=== PATIENT | female | born 1960 | race Caucasian/White ===

== ENCOUNTER 2016-07-02 10:20 | Day surgery (SDC) | payer OTHER ==
--- NOTE | 2016-07-02 07:39 | HP ---
DATE OF SURGERY: 07/02/2016 HISTORY OF PRESENT ILLNESS: The patient is a 56 year-old who for a while had a nodular cyst on the right arm that has been increasing in size, increasing discomfort and desires excision. PAST MEDICAL HISTORY: Asthma. PAST SURGICAL HISTORY: She denies prior surgery in this area. D&C and tubal in the past. MEDICATIONS: Denies any medications. She denied any medications but she is taking Tylenol, Ventolin HFA, Fenugreek seed extract and Benadryl PRN. ALLERGIES: IV CONTRAST. FAMILY HISTORY: Diabetes, myocardial infarction, prostate cancer, breast cancer. SOCIAL HISTORY: Less than one pack per day smoker. One to drinks one to two times a week. REVIEW OF SYSTEMS: Twelve systems reviewed per admission assessment. No chest pain or palpitations other systems negative or noncontributory as above and per preadmission questionnaire. PHYSICAL EXAMINATION: GENERAL: No acute distress. HEENT: Sclerae nonicteric. NECK: No JVD. CHEST: Equal excursion, nonlabored breathing. CVS: Regular rate and rhythm. ABDOMEN: Soft, nontender. EXTREMITIES: Right forearm nodular cyst. Otherwise no cyanosis. NEURO: Alert, moving extremities grossly symmetrically. IMPRESSION: Enlarging increasingly symptomatic right forearm nodular cyst. I felt the patient would benefit from excisional biopsy. Risks and benefits explained in detail including but not limited to bleeding or infection, risk of wound complication or dehiscence possibly requiring packing, general risk of aches, pains, burning or numbness possibly alf or chronic in nature, risk of sensory or motor nerve irritation or scar formation but not limited to. She understands and agrees to the planned procedure and will proceed with excisional biopsy right forearm nodular cystic as an outpatient.
[~2016-07-02 10:20] MED LIST: DIPRIVAN 200 MG/20 ML IV ONE; Decadron 4 MG INJ IV ONE; Lactated Ringers 1,000 ML IV ONE; Lactated Ringers 1,000 ML IV SCH; SUBLIMAZE 100 MCG/2 ML IV ONE; Sensorcaine 0.25% 10 ML ONE; TORAdol 30 mg Injection IV ONE; Zofran 4 MG/2 ML VIAL IV ONE
[2016-07-02 13:10] VITALS: BP 122/69; PULSE 75; O2SAT 98
--- NOTE | 2016-07-03 08:35 | OP ---
SURGERY DATE/TIME: 07/02/2016 1111 PREOPERATIVE DIAGNOSIS: Enlarging symptomatic right forearm cyst or nodule. POSTOPERATIVE DIAGNOSIS: Enlarging symptomatic right forearm cyst or nodule. PROCEDURE: Excisional biopsy approximately 1.5 to 2 cm cyst or nodule with intermediate closure. SURGEON: Dr. Jose Luis Mari. HOLISTIC PULSER: Nereida Han, Medical Student III. ANESTHESIA: General. ESTIMATED BLOOD LOSS: Minimal. INDICATIONS: As noted above. Risks and benefits explained in detail and not limited to and consent obtained. DESCRIPTION OF PROCEDURE AND FINDINGS: The patient is taken to the operating room. The area had been confirmed, marked in the preoperative holding area. Taken to the operating room. General anesthesia induced. The arm was prepped and draped in usual sterile fashion. After official time out and no disagreement with planned procedure, a small spindle shaped segment of skin overlying the area was taken. Dissection carried down through the skin. It seemed to be inflamed anteriorly but slowly and carefully it was mobilized around. It had a little bit more appearance of a cyst type nodule slowly and carefully freed from the underlying fascia and surrounding subcutaneous fat. It was passed off. It measured about 1.5 cm or so but less than 2 cm in vivo. Good hemostasis noted. Subcu closed with 3-0 Vicryl, skin closed with 4-0 Vicryl, Steri-Strips and sterile dressing applied. The patient tolerated the procedure well. There were no immediate complications. Findings discussed with the family out in the waiting area.
== END 2016-07-02 13:05 | disposition home or self-care (01) ==
LOC: SDC 10:20
PROVIDERS: ATTEND Surgery
PROC: 0HQDXZZ Repair Right Lower Arm Skin, External Approach (ICD-10-PCS; principal; 2016-07-02)
PROC: 0HBDXZX Excision of Right Lower Arm Skin, External Approach, Diagnostic (ICD-10-PCS; 2016-07-02)
DX: L72.9 Follicular cyst of the skin and subcutaneous tissue, unspecified (principal); R20.8 Other disturbances of skin sensation; J45.909 Unspecified asthma, uncomplicated; Z72.0 Tobacco use
CPT/HCPCS: 00400; 36415; J1100; J1885; J2405; J2704; J3010

== ENCOUNTER 2017-08-19 16:12 | Observation (INO) | payer OTHER ==
[2017-08-19] MEDS ORDERED: Sodium Chloride 0.9% 1000 ML 1,000 ML IV STA (16:21)
--- NOTE | 2017-08-19 16:26 | ERPHSYRPT ---
- History of Present Illness Time Seen by Provider: 08/19/17 16:23 Source: patient Physician History: mild to mod dizziness and muscle cramps diffusely after working in the hot sun today, no emesis, no injury, speech fluent Allergies/Adverse Reactions: Iodinated Contrast- Oral and IV Dye [Iodinated Contrast Media - Oral and] Allergy (Severe, Verified 08/19/17 16:29) Hives Home Medications: Diphenhydramine HCl 25 mg [Benadryl 25 mg Capsule] 75 mg PO DAILY [History] Lisinopril/Hydrochlorothiazide [Lisinopril-Hctz 10-12.5 mg Tab] 1 tab PO DAILY 08/19/17 [History] - Review of Systems Constitutional: Weakness, No Fever Eyes: No Vision Changes Ears, Nose, & Throat: No Mouth Pain Respiratory: No Dyspnea Cardiac: No Chest Pain Abdominal/Gastrointestinal: No Abdominal Pain Musculoskeletal: No Injury Skin: No Rash Neurological: Dizziness, Headache, No Focal Weakness - Past Medical History Pertinent Past Medical History: Yes Neurological History: No Pertinent History ENT History: No Pertinent History Cardiac History: Hypertension Respiratory History: Asthma Endocrine Medical History: No Pertinent History Musculoskeletal History: No Pertinent History GI Medical History: No Pertinent History History: No Pertinent History Psycho-Social History: Anxiety Female Reproductive Disorders: No Pertinent History Other Medical History: pt states she lost her son in 2000, she had anxiety, and chest pain, and hypertension. she saw Dr. Jenkins and her heart was ruled out, she was having anxiety from the loss of her son. - Past Surgical History Past Surgical History: Yes Neuro Surgical History: No Pertinent History Cardiac: No Pertinent History Respiratory: No Pertinent History Gastrointestinal: No Pertinent History Genitourinary: No Pertinent History Musculoskeletal: No Pertinent History Female Surgical History: Tubal Ligation - Social History Smoking Status: Former smoker Exposure to second hand smoke: No Drug Use: none - Nursing Vital Signs Nursing Vital Signs: Initial Vital Signs Temperature 98.0 F 08/19/17 16:19 Pulse Rate 108 H 08/19/17 16:19 Blood Pressure 92/59 08/19/17 16:19 O2 Sat by Pulse Oximetry 93 L 08/19/17 16:19 Pain Scale Pain Intensity 0 - Physical Exam General Appearance: no apparent distress Eye Exam: PERRL/EOMI Ears, Nose, Throat Exam: dry mucous membranes Neck Exam: No meningismus Respiratory Exam: lungs clear, No respiratory distress Cardiovascular Exam: regular rate/rhythm Gastrointestinal/Abdomen Exam: soft, No tenderness Back Exam: normal range of motion Extremity Exam: normal range of motion Neurologic Exam: alert, oriented x 3, cooperative Skin Exam: warm, dry - Course Nursing assessment & vital signs reviewed: Yes EKG Interpreted by Me: Other (nsr 95, no stemi) - CT Exams Head CT Interpretation: Negative, Discussed w/radiologist Ordered Tests: Active Orders 24 hr Category Date Time Status EKG-ER Only STAT Care 08/19/17 16:21 Active IV Insertion STAT Care 08/19/17 16:21 Active HEAD WITHOUT CONTRAST [CT] Stat Exams 08/19/17 16:22 Completed CBC W DIFF Stat Lab 08/19/17 16:40 Completed CK-Creatinine Phosphokinase Stat Lab 08/19/17 16:40 Results CMP Stat Lab 08/19/17 16:40 Results CULTURE,URINE Stat Lab 08/19/17 Received ETHYL ALCOHOL Stat Lab 08/19/17 16:40 Results Lactic Acid Stat Lab 08/19/17 16:21 Completed TROPONIN Q3H Lab 08/19/17 16:40 Completed TROPONIN Q3H Lab 08/19/17 19:30 Ordered TROPONIN Q3H Lab 08/19/17 22:30 Ordered TROPONIN Q3H Lab 08/20/17 01:30 Ordered TROPONIN Q3H Lab 08/20/17 04:30 Ordered UA W/ MICROSCOPIC Stat Lab 08/19/17 Completed Urine Triage Profile Stat Lab 08/19/17 16:22 Completed Transfer Order Routine Transfer 08/19/17 Ordered Medication Summary Discontinued Medications Generic Name Dose Route Start Last Admin Trade Name Will PRN Reason Stop Dose Admin Sodium Chloride 1,000 mls @ 999 mls/hr 08/19/17 16:21 08/19/17 16:40 Sodium Chloride 0.9% 1000 Ml IV 08/19/17 17:21 999 mls/hr .Q1H1M STA Administration Sodium Chloride Confirm 08/19/17 16:38 Sodium Chloride 0.9% 1000 Ml Administered 08/19/17 16:39 Dose 1,000 mls @ ud .ROUTE .STK-MED ONE Lab/Rad Data: Laboratory Result Diagrams 08/19/17 16:40 08/19/17 16:40 Laboratory Results 08/19/17 08/19/17 08/19/17 Range/Units Unknown 16:40 16:40 WBC (4.0-10.5) K/mm3 RBC (4.1-5.4) M/mm3 Hgb (12.0-16.0) gm/dl Hct (35-47) % MCV (78-100) fl MCH (26-32) pg MCHC (32-36) g/dl RDW (11.5-14.0) % Plt Count (150-450) K/mm3 MPV (6-9.5) fl Gran % (36.0-66.0) % Eos # (Auto) (0-0.5) Absolute Lymphs (auto) (1.0-4.6) Absolute Monos (auto) (0.0-1.3) Lymphocytes % (24.0-44.0) % Monocytes % (0.0-12.0) % Eosinophils % (0.00-5.0) % Basophils % (0.0-0.4) % Absolute Granulocytes (1.4-6.9) Basophils # (0-0.4) Sodium 140 (137-145) mmol/L Potassium 4.0 (3.5-5.1) mmol/L Chloride 102 (98-107) mmol/L Carbon Dioxide 27 (22-30) mmol/L Anion Gap 15.6 H (5-15) MEQ/L BUN 31 H (7-17) mg/dL Creatinine 1.68 H (0.52-1.04) mg/dL Estimated GFR 33.5 ML/MIN Glucose 100 (74-106) mg/dL Lactic Acid (0.4-2.0) Calcium 10.5 H (8.4-10.2) mg/dL Total Bilirubin 0.70 (0.2-1.3) mg/dL AST 31 (14-36) U/L ALT 20 (0-35) U/L Alkaline Phosphatase 71 (38-126) U/L Creatine Kinase 82 (30-135) U/L Troponin I 0.015 (0.000-0.034) ng/mL Serum Total Protein 7.6 (6.3-8.2) g/dL Albumin 4.6 (3.5-5.0) g/dL Ur Collection Type CCMS Urine Color DARK YELLOW (YELLOW) Urine Appearance CLEAR (CLEAR) Urine pH 5.0 (5-6) Ur Specific [place] 1.020 (1.005-1.025) Urine Protein TRACE (Negative) Urine Ketones TRACE (NEGATIVE) Urine Blood TRACE NON-HEM (0-5) Ashu/ul Urine Nitrite NEGATIVE (NEGATIVE) Urine Bilirubin NEGATIVE (NEGATIVE) Urine Urobilinogen NORMAL (0-1) mg/dL Ur Leukocyte Esterase TRACE (NEGATIVE) Urine Microscopic RBC 0-2 (0-2) /HPF Urine Microscopic WBC 5-10 (0-5) /HPF Ur Epithelial Cells FEW (FEW) /HPF Urine Bacteria RARE (NEGATIVE) /HPF Urine Mucus SLIGHT (NEGATIVE) /HPF Urine Culture Reflexed YES (NO) Urine Glucose NEGATIVE (NEGATIVE) mg/dL Urine Opiates Level (NEGATIVE) Ur Methadone (NEGATIVE) Urine Barbiturates (NEGATIVE) Ur Phencyclidine (PCP) (NEGATIVE) Urine Amphetamine (NEGATIVE) U Benzodiazepine Level (NEGATIVE) Urine Cocaine (NEGATIVE) Urine Marijuana (THC) (NEGATIVE) Ethyl Alcohol Pending Specimen Received 08-19-17 1815 08/19/17 08/19/17 08/19/17 Range/Units 16:40 16:22 16:21 WBC 16.5 H (4.0-10.5) K/mm3 RBC 4.82 (4.1-5.4) M/mm3 Hgb 15.5 (12.0-16.0) gm/dl Hct 45.4 (35-47) % MCV 94.2 (78-100) fl MCH 32.2 H (26-32) pg MCHC 34.1 (32-36) g/dl RDW 13.2 (11.5-14.0) % Plt Count 384 (150-450) K/mm3 MPV 9.2 (6-9.5) fl Gran % 79.8 H (36.0-66.0) % Eos # (Auto) 0.07 (0-0.5) Absolute Lymphs (auto) 1.93 (1.0-4.6) Absolute Monos (auto) 1.30 (0.0-1.3) Lymphocytes % 11.7 L (24.0-44.0) % Monocytes % 7.9 (0.0-12.0) % Eosinophils % 0.4 (0.00-5.0) % Basophils % 0.2 (0.0-0.4) % Absolute Granulocytes 13.14 H (1.4-6.9) Basophils # 0.03 (0-0.4) Sodium (137-145) mmol/L Potassium (3.5-5.1) mmol/L Chloride (98-107) mmol/L Carbon Dioxide (22-30) mmol/L Anion Gap (5-15) MEQ/L BUN (7-17) mg/dL Creatinine (0.52-1.04) mg/dL Estimated GFR ML/MIN Glucose (74-106) mg/dL Lactic Acid 1.1 (0.4-2.0) Calcium (8.4-10.2) mg/dL Total Bilirubin (0.2-1.3) mg/dL AST (14-36) U/L ALT (0-35) U/L Alkaline Phosphatase (38-126) U/L Creatine Kinase (30-135) U/L Troponin I (0.000-0.034) ng/mL Serum Total Protein (6.3-8.2) g/dL Albumin (3.5-5.0) g/dL Ur Collection Type Urine Color (YELLOW) Urine Appearance (CLEAR) Urine pH (5-6) Ur Specific [place] (1.005-1.025) Urine Protein (Negative) Urine Ketones (NEGATIVE) Urine Blood (0-5) Ashu/ul Urine Nitrite (NEGATIVE) Urine Bilirubin (NEGATIVE) Urine Urobilinogen (0-1) mg/dL Ur Leukocyte Esterase (NEGATIVE) Urine Microscopic RBC (0-2) /HPF Urine Microscopic WBC (0-5) /HPF Ur Epithelial Cells (FEW) /HPF Urine Bacteria (NEGATIVE) /HPF Urine Mucus (NEGATIVE) /HPF Urine Culture Reflexed (NO) Urine Glucose (NEGATIVE) mg/dL Urine Opiates Level NEGATIVE (NEGATIVE) Ur Methadone NEGATIVE (NEGATIVE) Urine Barbiturates NEGATIVE (NEGATIVE) Ur Phencyclidine (PCP) NEGATIVE (NEGATIVE) Urine Amphetamine NEGATIVE (NEGATIVE) U Benzodiazepine Level NEGATIVE (NEGATIVE) Urine Cocaine NEGATIVE (NEGATIVE) Urine Marijuana (THC) POSITIVE (NEGATIVE) Ethyl Alcohol Specimen Received - Progress Progress: improved Discussed with : Nikos Will see patient in: hospital (observation) Counseled pt/family regarding: lab results, diagnosis, rad results - Departure Time of Disposition: 18:40 Departure Disposition: Observation Clinical Impression: Heat stress syndrome Qualifiers: Encounter type: initial encounter Qualified Code(s): T67.8XXA - Other effects of heat and light, initial encounter Condition: Stable Critical Care Time: No Referrals: OSMANY BONNER [Primary Care Provider] -
[2017-08-19] MEDS ORDERED: Sodium Chloride 0.9% 1000 ML 1,000 ML ONE (16:38)
[2017-08-19 16:46] LABS: BASOPHIL % 0.2 % (0.0-0.4); Basophil (Absolute #) 0.03 (0-0.4); Eosinophil % 0.4 % (0.00-5.0); Eosinophil (Absolute #) 0.07 (0-0.5); Granulocyte Absolute (ANC) 13.14 (1.4-6.9); Granulocytes % 79.8 % (36.0-66.0); Hematocrit 45.4 % (35-47); Hemoglobin 15.5 gm/dl (12.0-16.0); Lymphocyte (Absolute #) 1.93 (1.0-4.6); Lymphocytes % 11.7 % (24.0-44.0); Mean Cell Volume 94.2 fl (78-100); Mean Corpuscular Hemoglobin 32.2 pg (26-32); Mean Corpuscular Hgb Concent. 34.1 g/dl (32-36); Mean Platelet Volume 9.2 fl (6-9.5); Monocytes % 7.9 % (0.0-12.0); Platelet Count 384 K/mm3 (150-450); Red Blood Count 4.82 M/mm3 (4.1-5.4); Red Cell Distribution Width 13.2 % (11.5-14.0); White Blood Count 16.5 K/mm3 (4.0-10.5)
--- NOTE | 2017-08-19 17:01 | XRAY ---
Indication: Headache, dizziness, and blurred vision. Multiple contiguous axial images obtained through the head without contrast. Comparison: None Normal appearing brain parenchyma, ventricles, and bony calvarium. Visualized paranasal sinuses and mastoid air cells are clear. Impression: Normal CT head without contrast exam. CTDI 65.18
[2017-08-19 17:02] LABS: ALBUMIN 4.6 g/dL (3.5-5.0); ALKALINE PHOSPHATASE 71 U/L (38-126); ANION GAP 15.6 MEQ/L (5-15); BLOOD UREA NITROGEN 31 mg/dL (7-17); CHLORIDE 102 mmol/L (98-107); CK-Creatinine Phosphokinase 82 U/L (30-135); Calcium 10.5 mg/dL (8.4-10.2); Carbon Dioxide 27 mmol/L (22-30); Creatinine 1 1.68 mg/dL (0.52-1.04); Glucose 100 mg/dL (74-106); SGOT/AST 31 U/L (14-36); SGPT/ALT 20 U/L (0-35); SODIUM 140 mmol/L (137-145); Total Protein 7.6 g/dL (6.3-8.2)
[2017-08-19 18:04] LABS: Amphetamine,Urine NEGATIVE (NEGATIVE); Barbiturate,Urine NEGATIVE (NEGATIVE); Benzodiazepine,Urine NEGATIVE (NEGATIVE); Cocaine,Urine NEGATIVE (NEGATIVE); Methadone,Urine NEGATIVE (NEGATIVE); Opiate,Urine NEGATIVE (NEGATIVE); PCP,Urine NEGATIVE (NEGATIVE); THC,Urine POSITIVE (NEGATIVE)
[2017-08-19 18:19] LABS: Appearance CLEAR (CLEAR); Bilirubin NEGATIVE (NEGATIVE); Blood TRACE NON-HEM Ery/ul (0-5); Glucose NEGATIVE (NEGATIVE); Ketones TRACE (NEGATIVE); Leukocyte Esterase TRACE (NEGATIVE); Nitrite NEGATIVE (NEGATIVE); Protein,Urine Dip TRACE (Negative); Urobilinogen NORMAL mg/dL (0-1)
[2017-08-19 18:20] LABS: Bacteria RARE /HPF (NEGATIVE); Epithelial Cells FEW /HPF (FEW); Mucus SLIGHT /HPF (NEGATIVE); RBC 0-2 /HPF (0-2)
[2017-08-19] MEDS ORDERED: Zofran 4 MG/2 ML VIAL IV PRN (18:56)
[2017-08-19] MEDS ORDERED: TYLENOL 325 MG PO PRN (18:56)
[2017-08-19 19:01] LABS: ETHYL ALCOHOL < 10 mg/dL (0-10)
[2017-08-19] MEDS ORDERED: PROVENTIL COMMON CANISTER IH PRN (19:53)
[2017-08-19] MEDS: Sodium Chloride 0.9% 1000 ML 1,000 ML IV SCH (19:59)
[2017-08-20 04:30] LABS: ANION GAP 10.2 MEQ/L (5-15); BLOOD UREA NITROGEN 31 mg/dL (7-17); CHLORIDE 108 mmol/L (98-107); Calcium 9.1 mg/dL (8.4-10.2); Carbon Dioxide 25 mmol/L (22-30); Glucose 102 mg/dL (74-106); Potassium 3.9 mmol/L (3.5-5.1); SODIUM 140 mmol/L (137-145)
[2017-08-20] MEDS: Sodium Chloride 0.9% 1000 ML 1,000 ML IV SCH (05:38)
[2017-08-20 07:01] VITALS: BP 112/70; PULSE 85; O2SAT 94
[2017-08-20 08:34] LABS: Hematocrit 43.7 % (35-47); Hemoglobin 14.5 gm/dl (12.0-16.0); Mean Corpuscular Hemoglobin 31.9 pg (26-32); Mean Corpuscular Hgb Concent. 33.2 g/dl (32-36); Mean Platelet Volume 9.2 fl (6-9.5); Platelet Count 349 K/mm3 (150-450); Red Blood Count 4.55 M/mm3 (4.1-5.4); Red Cell Distribution Width 13.2 % (11.5-14.0); White Blood Count 7.5 K/mm3 (4.0-10.5)
--- NOTE | 2017-08-20 08:50 | PCM.DCORD ---
- Discharge Discharge Date: 08/20/17 Prescriptions: Continue Diphenhydramine HCl 25 mg [Benadryl 25 mg Capsule] 75 mg PO DAILY Lisinopril/Hydrochlorothiazide [Lisinopril-Hctz 10-12.5 mg Tab] 1 tab PO DAILY Albuterol 1 inh IH DAILY PRN PRN PRN Reason: Shortness Of Breath/Wheezing Follow up with: OSMANY BONNER [Primary Care Provider] - 1 Week
--- NOTE | 2017-08-20 14:26 | SSS ---
DISCHARGE DIAGNOSES: 1) HEAT EXHAUSTION. 2) DEHYDRATION. 3) RENAL INSUFFICIENCY. HISTORY: The patient is a 57 year-old white female who reports she had been out in the heat of the day chopping wood. She got to the point where she began having some dizziness and muscle cramps. She presented herself to the emergency room. She had a previous episode years ago with heat exhaustion and felt this represented the same problem. The patient was evaluated and found to be dehydrated with renal insufficiency with rise in BUN and creatinine. She was brought into the hospital for IV fluid hydration and monitoring. PAST MEDICAL HISTORY: Essentially no medical problems. She did have some problems with anxiety and depression when she lost a child in 2000. PAST SURGICAL HISTORY: Tubal ligation. MEDICATIONS: She reports that she takes lisinopril 10 mg a day for mild hypertension otherwise she takes occasional Benadryl and Tylenol but no other medications. ALLERGIES: IV DYE. PHYSICAL EXAMINATION: Revealed a well nourished, well developed 57 year-old white female in no distress. Her vital signs at the time of my evaluation showed a temperature 97.9F pulse 87, respiratory rate 18, blood pressure 116/68. O2 saturation 97% on room air. HEENT: Normocephalic, atraumatic. Pupils equal round reactive to light. Extraocular movements intact. Oropharynx is pink and moist. NECK: Supple without lymphadenopathy, thyromegaly or JVD. CHEST: Clear to auscultation with good air movement bilaterally. HEART: Regular rate and rhythm without murmurs, rubs or gallops. ABDOMEN: Soft without palpable masses. EXTREMITIES: Without clubbing, cyanosis or edema. NEUROLOGIC: The patient is alert and oriented x3 with no focal deficits. LAB DATA AND TESTS: Her sugar was 100, BUN 31, creatinine 1.68. Electrolytes were essentially normal as were liver enzymes. Urine drug screen was positive for THC but otherwise negative. The patient's UA showed specific gravity of 1.020 and was otherwise essentially normal. He did have a minimal elevation in the white count of 5 to 10 white blood cells per high power field on UA. The white blood cell count was noted to be elevated at 16,500 with mild left shift with 79.8% granulocytes. Her hemoglobin 15.5, PLT count 384,000. HOSPITAL COURSE: The patient was admitted to the medicine bermudez and given IV fluid hydration. By the next morning her BUN 31 and creatinine 0.9. Electrolytes were normal. The troponins were negative at less than 0.012. EKG showing normal sinus rhythm with no acute changes. The patient's white blood cell count is currently pending on recheck but otherwise she seems to be back to normal and is wishing to go home. We will allow this to happen once we get a report back on her white blood cell count being back more towards normal again. She was instructed to stay out of the heat for the next couple of days and to reintroduce herself to the heat gradually. She is to call the office if she has any further problems in the interim.
== END 2017-08-20 09:00 | disposition home or self-care (01) ==
LOC: ED 16:12 → MED SURG 18:50
PROVIDERS: ADMIT Internal Medicine; ATTEND Internal Medicine
DX: T67.5XXA Heat exhaustion, unspecified, initial encounter (principal); E86.0 Dehydration; N28.9 Disorder of kidney and ureter, unspecified; I10 Essential (primary) hypertension
CPT/HCPCS: 36415; 70450; 80048; 80053; 80307; 81000; 82550; 83605; 84484; 85025; 85027; 87086; 93005; 93268; 94760; 96360; 99285; G0378; G0480

== ENCOUNTER 2017-09-09 10:02 | Emergency (ER) | payer OTHER ==
[2017-09-09] MEDS ORDERED: Adacel Vial IM ONE ×2 (10:35→10:39)
--- NOTE | 2017-09-09 10:35 | ERPHSYRPT ---
- History of Present Illness Time Seen by Provider: 09/09/17 10:30 Source: patient Exam Limitations: no limitations Patient Subjective Stated Complaint: pt reports she was trimming hedges when she accidently got finger of left hand-denies numbness or tinlging Triage Nursing Assessment: pt pink warm and dry-alert-3 lacerations noted with bleeding controlled with pressure Physician History: The patient is a 57-year-old right-handed female complaining that she accidentally cut the tip of her left ring finger with body trimmer just before arrival. She denies numbness or tingling. There are 3 lacerations to the tip of her left index finger. Her last tetanus vaccination is unknown. Her past medical history significant for hypertension and allergies. Timing/Duration: today Quality: painful Severity: mild Location: hands (left ring finger) Possible Causes: other (body trimmer cut) Associated Symptoms: other (laceration) Allergies/Adverse Reactions: Iodinated Contrast- Oral and IV Dye [Iodinated Contrast Media - Oral and] Allergy (Severe, Verified 09/09/17 10:20) Hives Home Medications: Diphenhydramine HCl 25 mg [Benadryl 25 mg Capsule] 75 mg PO DAILY [History] Albuterol 1 inh IH DAILY PRN PRN 08/19/17 [History] Lisinopril/Hydrochlorothiazide [Lisinopril-Hctz 10-12.5 mg Tab] 1 tab PO DAILY 08/19/17 [History] Hx Tetanus, Diphtheria Vaccination/Date Given: No Hx Influenza Vaccination/Date Given: No Hx Pneumococcal Vaccination/Date Given: No Immunizations Up to Date: Yes - Review of Systems Constitutional: No Fever, No Chills Eyes: No Symptoms Ears, Nose, & Throat: No Symptoms Respiratory: No Cough, No Dyspnea Cardiac: No Chest Pain, No Edema, No Syncope Abdominal/Gastrointestinal: No Abdominal Pain, No Nausea, No Vomiting, No Diarrhea Genitourinary Symptoms: No Dysuria Musculoskeletal: No Back Pain, No Neck Pain Skin: Other (laceration) Neurological: No Dizziness, No Focal Weakness, No Sensory Changes Psychological: No Symptoms Endocrine: No Symptoms Hematologic/Lymphatic: No Symptoms Immunological/Allergic: No Symptoms All Other Systems: Reviewed and Negative - Past Medical History Pertinent Past Medical History: Yes Neurological History: No Pertinent History ENT History: No Pertinent History Cardiac History: Hypertension Respiratory History: Asthma Endocrine Medical History: No Pertinent History Musculoskeletal History: No Pertinent History GI Medical History: No Pertinent History History: No Pertinent History Psycho-Social History: Anxiety Female Reproductive Disorders: No Pertinent History Other Medical History: . - Past Surgical History Past Surgical History: Yes Neuro Surgical History: No Pertinent History Cardiac: Cardiac Catheterization Respiratory: No Pertinent History Gastrointestinal: No Pertinent History Genitourinary: No Pertinent History Musculoskeletal: No Pertinent History, Orthopedic Surgery Female Surgical History: Tubal Ligation Other Surgical History: exploratory surgery abdomen 1981, D&C X2, posterior right arm lump removal 2017 - Social History Smoking Status: Current every day smoker How long have you smoked: yrs Exposure to second hand smoke: Yes Drug Use: marijuana Patient Lives Alone: No - Female History Hx Now: No - Nursing Vital Signs Nursing Vital Signs: Initial Vital Signs Temperature 98.2 F 09/09/17 10:17 Pulse Rate 91 H 09/09/17 10:17 Respiratory Rate 18 09/09/17 10:17 Blood Pressure 119/70 09/09/17 10:17 O2 Sat by Pulse Oximetry 96 09/09/17 10:17 Pain Scale Pain Intensity 1 - Physical Exam General Appearance: no apparent distress, alert Eye Exam: PERRL/EOMI, eyes nml inspection Ears, Nose, Throat Exam: normal ENT inspection, pharynx normal, moist mucous membranes Neck Exam: normal inspection, non-tender, supple, full range of motion Respiratory Exam: wheezing Cardiovascular Exam: regular rate/rhythm, normal heart sounds Gastrointestinal/Abdomen Exam: soft, mass, No tenderness Pelvic Exam: not done Rectal Exam: not done Back Exam: normal inspection, normal range of motion, No CVA tenderness, No vertebral tenderness Extremity Exam: normal inspection, normal range of motion Neurologic Exam: alert, oriented x 3, cooperative, normal mood/affect, sensation nml, No motor deficits Skin Exam: laceration (3 small linear lacerations to distal phylange of left ring fingerl) SpO2 Interpretation: normal SpO2: 96 Oxygen Delivery: Room Air Procedures - Laceration/Wound Repair Left Finger Wound Location: Left, hand Wound Length (cm): 4 Wound's Depth, Shape: superficial, irregular Wound Explored: clean Irrigated: No Hibiclens Prep: Yes Anesthesia: digital block, 1% Lidocaine Volume Anesthetic (ccs): 8 Wound Debrided: minimal Wound Repaired With: sutures Suture Size/Type: 5-0, ethilon Number of Sutures: 11 Layer Closure?: No Sterile Dressing Applied?: Yes Splint Applied?: Yes - Radiology Exams Left Hand X-ray Interpretation: Interpreted by me, Displaced Fracture (fracture mid shaft of distal phylange of left 4th digit of left hand.) Ordered Tests: Active Orders 24 hr Category Date Time Status IV Insertion STAT Care 09/09/17 11:06 Active Wound Care STAT Care 09/09/17 11:08 Active FINGER(S) Stat Exams 09/09/17 10:35 Taken Medication Summary Discontinued Medications Generic Name Dose Route Start Last Admin Trade Name Freq PRN Reason Stop Dose Admin Diphtheria/Tetanus/Acell Pertussis 0.5 ml 09/09/17 10:35 09/09/17 10:41 Adacel Vial IM 09/09/17 10:36 0.5 ml .ONCE ONE Administration Diphtheria/Tetanus/Acell Pertussis Confirm 09/09/17 10:39 Adacel Vial Administered 09/09/17 10:40 Dose 0.5 ml IM .STK-MED ONE Piperacillin Sod/Tazobactam Sod 3.375 gm in 100 mls @ 200 mls/hr 09/09/17 11: 08 Zosyn 3.375gm/100 Ml D5w IV 09/09/17 11:37 STAT STA Piperacillin Sod/Tazobactam Sod Confirm 09/09/17 11:16 Zosyn 3.375gm/100 Ml D5w Administered 09/09/17 11:17 Dose 3.375 gm in 100 mls @ ud IV .STK-MED ONE Lidocaine HCl 10 ml 09/09/17 11:09 Xylocaine 1% Hcl 20 Ml Mdv IJ 09/09/17 11:10 STAT ONE Lidocaine HCl Confirm 09/09/17 11:16 Xylocaine 1% Hcl 20 Ml Mdv Administered 09/09/17 11:17 Dose 1 ml .ROUTE .STK-MED ONE - Progress Progress: improved Counseled pt/family regarding: diagnosis, need for follow-up, rad results - Departure Time of Disposition: 12:20 Departure Disposition: Home Clinical Impression: Laceration, Open fracture Condition: Stable Critical Care Time: No Referrals: OSMANY BONNER [Primary Care Provider] - Additional Instructions: The cut to your left ring finger also cut into the bone. Therefore, you had an open fracture. You were given Zosyn 3.375 g by IV in the ER. You were also given a tetanus vaccination. Continue to take Augmentin 875 2 times a day for 10 days. Take Tylenol and ibuprofen as needed for pain. Wear the splint to your finger to keep you from applying pressure to the sutures. Keep the splint in place until the sutures are removed by her primary medical doctor in 12 days. You had 3 lacerations that were closed with 11 sutures. Prescriptions: Amoxicillin/Potassium Clav [Augmentin 875-125 Tablet] 1 each PO BID #20 tablet
[2017-09-09] MEDS ORDERED: Zosyn 3.375GM/100 Ml D5W 3.375 GM/100 ML IVPB IV STA (11:08)
[2017-09-09 11:09] VITALS: BP 103/75; PULSE 88
[2017-09-09] MEDS ORDERED: XYLOCAINE 1% HCL 20 ML MDV IJ ONE (11:09)
[2017-09-09 11:10] VITALS: O2SAT 96
[2017-09-09] MEDS ORDERED: Zosyn 3.375GM/100 Ml D5W 3.375 GM/100 ML IVPB IV ONE (11:16)
[2017-09-09] MEDS ORDERED: XYLOCAINE 1% HCL 20 ML MDV ONE (11:16)
--- NOTE | 2017-09-09 12:41 | XRAY ---
Exam: 3 views of the left fourth (ring) finger from 09/09/2017. Comparison: None. Indication: Patient was cutting bushes down and caught left fourth digit. Findings: AP, oblique, and lateral images of the left fourth finger were obtained. There is an acute, mildly comminuted, oblique fracture through the mid shaft of the distal phalanx of the left fourth finger. There is minimal cortical step-off deformity and very slight dorsal angulation on the lateral image. There is also noted to be minimal diastasis along the ulnar margin of the major fracture site on the AP film. Significant surrounding soft tissue swelling and soft tissue injury about the distal phalanx of the left fourth finger is seen. I detect no radiopaque soft tissue foreign body. Impression: 1. Acute, minimally comminuted, oblique fracture through the shaft of the distal phalanx of the left fourth finger, as discussed above. Significant surrounding soft tissue injury and soft tissue swelling are seen without definite radiopaque soft tissue foreign body.
== END 2017-09-09 13:05 | disposition home or self-care (01) ==
LOC: ED 10:02
PROC: 0HQGXZZ Repair Left Hand Skin, External Approach (ICD-10-PCS; principal; 2017-09-09)
DX: S62.635B Displaced fracture of distal phalanx of left ring finger, initial encounter for open fracture (principal); W29.3XXA Contact with powered garden and outdoor hand tools and machinery, initial encounter
CPT/HCPCS: 12002; 36000; 73140; 90471; 90715; 96372; 99284; J2543

== ENCOUNTER 2017-09-26 23:04 | Emergency (ER) | payer OTHER ==
[2017-09-27] MEDS ORDERED: MOTRIN 400 MG PO ONE (01:11)
[2017-09-27 01:18] VITALS: PULSE 79; O2SAT 96
--- NOTE | 2017-09-27 01:24 | ERPHSYRPT ---
- History of Present Illness Time Seen by Provider: 09/27/17 01:20 Source: patient Exam Limitations: no limitations Patient Subjective Stated Complaint: pt is alert and oriented. pt brought in in wheelchair and unable to bear weight on her right leg. pt states that she was sliding across her truck seat and felt a sudden sharp pain directing on her right knee. pain did not radiate anywhere. knee appears swollen. pt is in pain when knee is touched or moved. no sensation loss. pt put ice on her knee with no relief. Triage Nursing Assessment: see above Physician History: Pt developed sudden pain in her right knee this afternoon, when sliding across on her truck seat, denies fall, twisting or other injuries, no calf pain, swelling, no chest pain, cough. SOB other complaints, she is unable to bear weight on her right leg. Method of Injury: unknown Occurred: this afternoon Quality: constant Severity of Pain-Max: severe Severity of Pain-Current: severe Lower Extremities Pain: knee: right Modifying Factors: Improves With: movement Associated Symptoms: unable to bear weight Allergies/Adverse Reactions: Iodinated Contrast- Oral and IV Dye [Iodinated Contrast Media - Oral and] Allergy (Severe, Verified 09/09/17 10:20) Hives Home Medications: Diphenhydramine HCl 25 mg [Benadryl 25 mg Capsule] 75 mg PO DAILY [History] Albuterol 1 inh IH DAILY PRN PRN 08/19/17 [History] Lisinopril/Hydrochlorothiazide [Lisinopril-Hctz 10-12.5 mg Tab] 1 tab PO DAILY 08/19/17 [History] Hx Tetanus, Diphtheria Vaccination/Date Given: Yes (09/15/17) Hx Influenza Vaccination/Date Given: No Hx Pneumococcal Vaccination/Date Given: No Immunizations Up to Date: Yes - Review of Systems Constitutional: No Symptoms Musculoskeletal: Other (right knee pain, swelling) All Other Systems: Reviewed and Negative - Past Medical History Pertinent Past Medical History: Yes Neurological History: No Pertinent History ENT History: No Pertinent History Cardiac History: Hypertension Respiratory History: Asthma Endocrine Medical History: No Pertinent History Musculoskeletal History: No Pertinent History GI Medical History: GERD History: No Pertinent History Psycho-Social History: Anxiety, Depression Female Reproductive Disorders: No Pertinent History Other Medical History: . - Past Surgical History Past Surgical History: Yes Neuro Surgical History: No Pertinent History Cardiac: Cardiac Catheterization Respiratory: No Pertinent History Gastrointestinal: No Pertinent History Genitourinary: No Pertinent History Musculoskeletal: No Pertinent History, Orthopedic Surgery Female Surgical History: Tubal Ligation Other Surgical History: exploratory surgery abdomen 1981, D&C X2, posterior right arm lump removal 2017 - Social History Smoking Status: Current every day smoker How long have you smoked: 49 years Exposure to second hand smoke: Yes Drug Use: marijuana Patient Lives Alone: No - Nursing Vital Signs Nursing Vital Signs: Initial Vital Signs Temperature 98.7 F 09/27/17 01:09 Pulse Rate 79 09/27/17 01:09 Respiratory Rate 16 09/27/17 01:09 Blood Pressure 136/85 09/27/17 01:09 O2 Sat by Pulse Oximetry 96 09/27/17 01:09 Pain Scale Pain Intensity 3 - Physical Exam General Appearance: no apparent distress Eyes, Ears, Nose, Throat Exam: normal ENT inspection Neck Exam: normal inspection, non-tender Cardiovascular/Respiratory Exam: chest non-tender, normal breath sounds, regular rate/rhythm, no JVD Gastrointestinal/Abdominal Exam: non-tender, soft Back Exam: normal inspection, No CVA tenderness Hips Exam: right: non-tender Knees Exam: right knee: soft tissue tenderness (mild, diffsue swellinf, no significant effusion, no deformity, discoloration or warmth, palpable distal pulses, no direct calf tenderness, Derrek's sign is negative.), swelling (ROM is limited due to pain.) Neuro/Tendon Exam: normal motor functions Mental Status Exam: alert, oriented x 3 Skin Exam: normal color, warm, dry SpO2 Interpretation: normal SpO2: 96 Oxygen Delivery: Room Air - Course Nursing assessment & vital signs reviewed: Yes - Radiology Exams Right Knee X-ray Interpretation: Interpreted by me, Negative Ordered Tests: Active Orders 24 hr Category Date Time Status Crutches STAT Care 09/27/17 01:58 Ordered Immobilizer STAT Care 09/27/17 01:58 Ordered KNEE (3 VIEWS) Stat Exams 09/27/17 01:11 Ordered Medication Summary Discontinued Medications Generic Name Dose Route Start Last Admin Trade Name Freq PRN Reason Stop Dose Admin Ibuprofen 400 mg 09/27/17 01:11 09/27/17 01:27 Motrin 400 Mg PO 09/27/17 01:12 400 mg STAT ONE Administration Ibuprofen Confirm 09/27/17 01:26 Motrin 400 Mg Administered 09/27/17 01:27 Dose 400 mg .ROUTE .STK-MED ONE - Progress Progress: improved Progress Note: 09/27/17 01:59 I explained our findings to this patient, X ray was negative, but she has mild swelling, and effusion, possible meniscus injury, she will be discharged home in immobilizer, and crutches, to rest with elevated leg, and follow up with her doctor next week, and return if severe pain, swelling or discoloration , coldness of the toes, foot. She was given Ultram 50 mg PO Q6h PRN for the pain # 10 tablets. 09/27/17 02:01 Counseled pt/family regarding: diagnosis, need for follow-up, rad results - Departure Time of Disposition: 02:02 Departure Disposition: Home Clinical Impression: Knee sprain Qualifiers: Encounter type: initial encounter Involved ligament of knee: unspecified ligament Laterality: right Qualified Code(s): S83.91XA - Sprain of unspecified site of right knee, initial encounter Condition: Stable Critical Care Time: No Referrals: OSMANY BONNER [Primary Care Provider] - Instructions: Knee Sprain (DC), Knee Pain (DC) Additional Instructions: Rest x 3-4 days with elevated leg, follow up with your physician in 3-4 days, return if severe pain, swelling, discoloration, coldness of the toes, foot!
[2017-09-27] MEDS ORDERED: MOTRIN 400 MG ONE (01:26)
[2017-09-27] MEDS ORDERED: ULTRAM 50 MG PO ONE (01:59)
[2017-09-27] MEDS ORDERED: ULTRAM 50 MG ONE (02:19)
[2017-09-27 02:49] VITALS: BP 125/89
--- NOTE | 2017-09-27 09:02 | XRAY ---
Indication: Pain. No known injury. Comparison: None 3 views of the right knee demonstrates small nonspecific suprapatellar effusion and minimal posterior vascular calcifications. No other bony, articular, or soft tissue abnormalities.
== END 2017-09-27 02:50 | disposition home or self-care (01) ==
LOC: ED 23:04
DX: S83.91XA Sprain of unspecified site of right knee, initial encounter (principal); M25.461 Effusion, right knee; M25.561 Pain in right knee; X58.XXXA Exposure to other specified factors, initial encounter; Y93.89 Activity, other specified
CPT/HCPCS: 73562; 99284; L1830; A9270-GY